=== PATIENT | male | born 1990 | race Caucasian/White ===

== ENCOUNTER 2018-03-13 22:41 | Observation (INO) | payer OTHER ==
[~2018-03-13] VITALS: Ht 172.7 cm; Wt 70.1 kg
[2018-03-13 23:28] LABS: BASOPHILS ABSOLUTE AUTO 0.04 K/mm3 (0.00-0.23); BASOPHILS PERCENT AUTO 0 % (0-2); EOSINOPHILS ABSOLUTE AUTO 0.25 K/mm3 (0.00-0.68); EOSINOPHILS PERCENT AUTO 3 % (0-6); Hematocrit 35.3 % (37.0-53.0); Hemoglobin 11.9 g/dL (13.5-17.5); IMMATURE GRAN ABSOLUTE AUTO 0.02 K/mm3 (0.00-0.10); IMMATURE GRAN PERCENT AUTO 0 % (0-1); LYMPHOCYTES ABSOLUTE AUTO 2.58 K/mm3 (0.84-5.20); LYMPHOCYTES PERCENT AUTO 25 % (21-46); MONOCYTES ABSOLUTE AUTO 0.55 K/mm3 (0.16-1.47); MONOCYTES PERCENT AUTO 5 % (4-13); Mean Corpuscular HGB 31.3 pg (26.0-34.0); Mean Corpuscular HGB Conc 33.7 g/dL (31.5-36.5); Mean Corpuscular Volume 93 fL (80-100); Mean Platelet Volume 8.7 fL (9.1-12.4); NEUTROPHILS ABSOLUTE AUTO 6.75 K/mm3 (1.96-9.15); NEUTROPHILS PERCENT AUTO 66 % (41-73); Platelet Count 339 K/mm3 (150-400); RDW Coefficient Variation 12.6 % (11.7-14.2); RDW Standard Deviation 43.2 fL (35.1-46.3); White Blood Cell Count 10.19 K/mm3 (4.00-11.30)
[2018-03-13 23:35] LABS: Calcium, Ionized (POC) 1.06 mmol/L (1.10-1.46); Chloride (POC) 89 mmol/L (98-108); Creatinine (POC) 0.9 mg/dL (0.8-1.3); Glucose (ISTAT POC) >700 mg/dL (70-99); Hemoglobin (POC) 12.9 g/dL (13.5-17.5); Potassium (POC) 4.6 mmol/L (3.5-5.5); Sodium (POC) 128 mmol/L (135-148); Total CO2 (POC) 29 mmol/L (21-32)
[2018-03-13 23:48] LABS: Beta-hydroxybutyrate 11.4 mg/dL (0.2-2.8)
[2018-03-14 00:02] LABS: Alanine Aminotransfer (ALT/SGP 27 U/L (12-78); Albumin, Blood 3.1 g/dL (3.4-5.0); Alk Phos 119 U/L (50-136); Anion Gap 11 mmol/L (6-16); Aspartate Aminotrans (AST/SGOT 30 U/L (12-37); Bilirubin, Total 0.5 mg/dL (0.1-1.0); Blood Urea Nitrogen 26 mg/dL (8-24); Bun/Creatinine Ratio 31.1 (12.0-20.0); CO2, Blood 27 mmol/L (21-32); Calcium, Blood 7.7 mg/dL (8.5-10.1); Chloride, Blood 92 mmol/L (98-108); Creatinine, Blood 0.84 mg/dL (0.60-1.20); Globulin, Blood 3.2 g/dL (2.2-4.0); Glomerular Filtration Rate >60 (60-); Glucose, Blood 709 mg/dL (70-99); Potassium, Blood 4.7 mmol/L (3.5-5.5); Sodium, Blood 130 mmol/L (136-145); Total Protein, Blood 6.3 g/dL (6.4-8.2)
[2018-03-14] MEDS ORDERED: Humalog100 UNIT/1 ×2 (00:15)
[2018-03-14 00:22] LABS: Bicarbonate Venous 26.8 mmol/L (24.0-30.0); PCO2 Venous 43.2 mmHg (38-42); PO2 Venous 202 mmHg (38-42); pH Blood Venous 7.42 (7.34-7.37)
[2018-03-14 00:23] LABS: Base Excess Venous 3.1 mmol/L
[2018-03-14 01:11] LABS: Source, Urine Clean Catch
[2018-03-14 01:18] LABS: Bilirubin, Urine Neg (Neg); Blood, Urine Neg (Neg); Glucose Qualitative, Urine 4+ (Neg); Ketones, Urine 2+ (Neg); Leukocyte Esterase, Urine Neg (Neg); Nitrite, Urine Neg (Neg); Protein, Urine Neg (Neg); Specific Gravity, Urine 1.005 (1.003-1.022); Urobilinogen, Urine NORM (Normal); pH, Urine 6.5 (5.0-8.0)
[2018-03-14 01:21] LABS: Appearance, Urine Clear (Clear); Color, Urine Pale Yellow (P-Yellow)
[2018-03-14 08:39] LABS: Hematocrit 36.8 % (37.0-53.0); Hemoglobin 12.3 g/dL (13.5-17.5); Mean Corpuscular HGB 31.5 pg (26.0-34.0); Mean Corpuscular HGB Conc 33.4 g/dL (31.5-36.5); Mean Corpuscular Volume 94 fL (80-100); Mean Platelet Volume 8.5 fL (9.1-12.4); Platelet Count 349 K/mm3 (150-400); RDW Coefficient Variation 12.6 % (11.7-14.2); RDW Standard Deviation 43.8 fL (35.1-46.3); White Blood Cell Count 7.15 K/mm3 (4.00-11.30)
[2018-03-14 09:09] LABS: Alanine Aminotransfer (ALT/SGP 32 U/L (12-78); Albumin, Blood 2.9 g/dL (3.4-5.0); Alk Phos 94 U/L (50-136); Anion Gap 8 mmol/L (6-16); Aspartate Aminotrans (AST/SGOT 41 U/L (12-37); Bilirubin, Total 0.4 mg/dL (0.1-1.0); Blood Urea Nitrogen 20 mg/dL (8-24); Bun/Creatinine Ratio 28.5 (12.0-20.0); CO2, Blood 27 mmol/L (21-32); Calcium, Blood 7.7 mg/dL (8.5-10.1); Chloride, Blood 109 mmol/L (98-108); Globulin, Blood 2.9 g/dL (2.2-4.0); Glomerular Filtration Rate >60 (60-); Glucose, Blood 57 mg/dL (70-99); Potassium, Blood 3.6 mmol/L (3.5-5.5); Sodium, Blood 144 mmol/L (136-145); Total Protein, Blood 5.8 g/dL (6.4-8.2)
[2018-03-14 14:14] LABS: Anion Gap 8 mmol/L (6-16); Blood Urea Nitrogen 18 mg/dL (8-24); Bun/Creatinine Ratio 26.5 (12.0-20.0); CO2, Blood 27 mmol/L (21-32); Calcium, Blood 7.9 mg/dL (8.5-10.1); Chloride, Blood 103 mmol/L (98-108); Creatinine, Blood 0.68 mg/dL (0.60-1.20); Glomerular Filtration Rate >60 (60-); Glucose, Blood 257 mg/dL (70-99); Potassium, Blood 4.7 mmol/L (3.5-5.5); Sodium, Blood 138 mmol/L (136-145)
[2018-03-14 19:58] LABS: Anion Gap 9 mmol/L (6-16); Blood Urea Nitrogen 19 mg/dL (8-24); Bun/Creatinine Ratio 20.5 (12.0-20.0); CO2, Blood 27 mmol/L (21-32); Calcium, Blood 8.2 mg/dL (8.5-10.1); Chloride, Blood 103 mmol/L (98-108); Creatinine, Blood 0.93 mg/dL (0.60-1.20); Glomerular Filtration Rate >60 (60-); Glucose, Blood 158 mg/dL (70-99); Potassium, Blood 3.9 mmol/L (3.5-5.5); Sodium, Blood 139 mmol/L (136-145)
[2018-03-15 02:14] LABS: BASOPHILS ABSOLUTE AUTO 0.03 K/mm3 (0.00-0.23); BASOPHILS PERCENT AUTO 1 % (0-2); EOSINOPHILS ABSOLUTE AUTO 0.32 K/mm3 (0.00-0.68); EOSINOPHILS PERCENT AUTO 5 % (0-6); Hematocrit 41.4 % (37.0-53.0); Hemoglobin 13.7 g/dL (13.5-17.5); IMMATURE GRAN ABSOLUTE AUTO 0.01 K/mm3 (0.00-0.10); IMMATURE GRAN PERCENT AUTO 0 % (0-1); LYMPHOCYTES ABSOLUTE AUTO 2.24 K/mm3 (0.84-5.20); LYMPHOCYTES PERCENT AUTO 38 % (21-46); MONOCYTES ABSOLUTE AUTO 0.26 K/mm3 (0.16-1.47); MONOCYTES PERCENT AUTO 4 % (4-13); Mean Corpuscular HGB 30.7 pg (26.0-34.0); Mean Corpuscular HGB Conc 33.1 g/dL (31.5-36.5); Mean Corpuscular Volume 93 fL (80-100); Mean Platelet Volume 8.8 fL (9.1-12.4); NEUTROPHILS ABSOLUTE AUTO 3.08 K/mm3 (1.96-9.15); NEUTROPHILS PERCENT AUTO 52 % (41-73); Platelet Count 351 K/mm3 (150-400); RDW Coefficient Variation 12.4 % (11.7-14.2); RDW Standard Deviation 42.4 fL (35.1-46.3); Red Blood Cell Count 4.46 M/mm3 (4.30-5.90); White Blood Cell Count 5.94 K/mm3 (4.00-11.30)
[2018-03-15 02:31] LABS: Glucose, Blood 583 mg/dL (70-99)
[2018-03-15 02:34] LABS: Anion Gap 9 mmol/L (6-16); Blood Urea Nitrogen 23 mg/dL (8-24); Bun/Creatinine Ratio 33.2 (12.0-20.0); CO2, Blood 27 mmol/L (21-32); Calcium, Blood 8.1 mg/dL (8.5-10.1); Chloride, Blood 96 mmol/L (98-108); Creatinine, Blood 0.69 mg/dL (0.60-1.20); Glomerular Filtration Rate >60 (60-); Glucose, Blood 588 mg/dL (70-99); Potassium, Blood 4.6 mmol/L (3.5-5.5); Sodium, Blood 132 mmol/L (136-145)
[2018-03-15] MEDS ORDERED: HUMALOG KW200 UNIT/1 ×2 (10:47)
[2018-03-15] MEDS ORDERED: INSULANPEN SC ×2 (10:49)
== END 2018-03-15 13:39 | disposition home or self-care (01) ==
LOC: ER 22:41 → MEDS 22:42 → ENPENDDIS 03-15 09:40 → MEDS 03-15 13:39
PROVIDERS: Emergency Medicine; Internal Medicine
DX: E10.65 Type 1 diabetes mellitus with hyperglycemia (principal); E86.0 Dehydration; F17.210 Nicotine dependence, cigarettes, uncomplicated
CPT/HCPCS: 36415; 80047; 80048; 80053; 81003; 82010; 82803; 82947; 85014; 85025; 85027; 96361; 96374; 96375; 96376; 99285-25; G0378; J1815; J1885; J2060; J2405; J7030

== ENCOUNTER 2018-03-17 20:00 | Emergency (ER) | payer OTHER ==
[~2018-03-17] VITALS: Ht 172.7 cm; Wt 68.0 kg
[~2018-03-17 20:00] MED LIST: HUMALOG KW200 UNIT/1; Humalog100 UNIT/1; INSULANPEN SC
[2018-03-17] MEDS ORDERED: Novolog Fl100 UNIT/1 (20:09)
[2018-03-17] MEDS ORDERED: IBUP600 PO (20:32)
[2018-03-17] MEDS ORDERED: Monodox100 MG PO (20:35)
== END 2018-03-17 21:03 | disposition home or self-care (01) ==
LOC: ER 20:00
DX: L03.032 Cellulitis of left toe (principal); R10.9 Unspecified abdominal pain; E11.9 Type 2 diabetes mellitus without complications; F17.200 Nicotine dependence, unspecified, uncomplicated; Z79.4 Long term (current) use of insulin; Y92.828 Other wilderness area as the place of occurrence of the external cause; Z23 Encounter for immunization
CPT/HCPCS: 90714; 96372; 99282